=== PATIENT | male | born 1950 | race Caucasian/White ===

== ENCOUNTER 2024-09-22 09:50 | Day surgery (SDC) | payer OTHER ==
[~2024-09-22] VITALS: Ht 177.8 cm; Wt 106.6 kg
[~2024-09-22 09:50] MED LIST: RANO500T3 PO; TAMS-35 PO
[2024-09-22] MEDS ORDERED: IODIXANOL 320MG/ML 100ML BTL IV ONE ×2 (12:41→14:15)
[2024-09-22] MEDS ORDERED: ANGIOMAX 250 MG VIAL IV ONE (12:49)
[2024-09-22] MEDS ORDERED: HEPARIN SODIUM (PORCINE) 5000 UNITS/ML 1ML VIAL ONE (12:50)
[2024-09-22] MEDS ORDERED: VERAPAMIL 2.5MG/ML INJ 2ML VIAL IV ONE (12:50)
[2024-09-22] MEDS ORDERED: LIDOCAINE 2%HCL (LOCAL ANESTH.) INJ 20ML MDV ONE (12:50)
[2024-09-22] MEDS ORDERED: fentaNYL CITRATE 100 MCG/2 ML VL ONE (12:50)
[2024-09-22] MEDS ORDERED: MIDAZOLAM HCL 2MG/2ML 2ml VIAL (1mg/ml) ONE (12:50)
[2024-09-22] MEDS ORDERED: SODIUM CHL 0.9% 50 ML ONE (12:51)
[2024-09-22] MEDS ORDERED: ASPirin 325 MG TAB ONE (14:18)
[2024-09-22] MEDS ORDERED: TICAGRELOR 90 MG TAB ONE (14:18)
--- NOTE | 2024-09-22 15:04 | DVHOP ---
DATE OF SURGERY: 09/22/2024 PROCEDURES PERFORMED: Left heart catheterization, bilateral cine coronary angiography, left ventriculography, PTCA and stenting of the LAD and diagonal arteries. Fractional flow reserve evaluation and intravascular ultrasound of the diagonal and LAD and FFR evaluation of the diagonal. Stenting of the LAD and no complications. Right heart catheterization was also performed. DESCRIPTION OF PROCEDURE: Prior local anesthesia with 2% lidocaine to the right wrist and full informed consent obtained. The patient was prepped and draped in the usual fashion, followed by placement of a 6-[place] sheath into the right radial artery, through which a Blake catheter was used for ventriculography and cannulation of both right and left coronary ostia for diagnostic purposes. We also placed a slender 6-[place] sheath into the antecubital vein. We placed a [place] catheter from the basilic vein to the right atrium, right ventricle, pulmonary artery capillary wedge pressure positions, where pressures were obtained and recorded. Cardiac outputs were determined by thermodilution technique in triplicate. No complications. HEMODYNAMICS: Aortic blood pressure was 130/70, end-diastolic pressure was 8 without a gradient across the aortic valve on pullback. Right atrial pressure was 5 with an RV pressure of 25/5 and a PA pressure of 25/15. Capillary wedge pressure was 8. Cardiac output was approximately 5.2 by the thermodilution technique in triplicate. CORONARY ANATOMY: The RCA is a large vessel with no stenosis in its proximal, mid or distal segments. PDA and posterolateral branches are normal. Left main is large and normal. Left anterior descending is a large vessel. It has a proximal 60%-70% stenosis. The diagonal has an 85%-90% stenosis proximally. The circumflex is free of significant disease. Ventriculography in the EPSTEIN projection shows an EF of about 65%. A [employer] program was used to perform FFR on the LAD showing a marginal FFR of mid 80s. Intravascular ultrasound with an IVUS catheter from [employer] revealed an area of 2.3 cm2 consistent with significant stenosis. We pre-dilated the diagonal artery with a 2.5 balloon in the left anterior descending with a 2.5 balloon as well. We placed a 2.5 x 26 mm stent into the diagonal artery and we placed a 3.5 x 12 into the LAD successfully without complications. There was excellent antegrade flow without thrombus formation and/or dissection. IMPRESSION: Normal left ventricular end-diastolic pressure at rest, normal pulmonary pressures. No gradients across valves. Coronary artery disease involving the left anterior descending and diagonal with successful evaluation, fractional flow reserve and intravascular ultrasound evaluation. No significant complications or other abnormalities occurred. There was a successful stenting of the LAD and diagonal arteries. The patient tolerated the procedure well with no complications. MD PRIMITIVO Del Angel/JESSICA/JAVED TID: [id number] RECEIPT: [id number] MTDD
[2024-09-22] MEDS ORDERED: ACETAMINOPHEN 325 MG TAB PO ONE (15:32)
[2024-09-22] MEDS ORDERED: TICA90TA PO (16:42)
== END 2024-09-22 17:05 | disposition home or self-care (01) ==
LOC: CATH 09:50
PROVIDERS: ATTEND Internal Medicine
DX: I25.119 Atherosclerotic heart disease of native coronary artery with unspecified angina pectoris (principal); R93.1 Abnormal findings on diagnostic imaging of heart and coronary circulation; R07.9 Chest pain, unspecified; I12.9 Hypertensive chronic kidney disease with stage 1 through stage 4 chronic kidney disease, or unspecified chronic kidney disease; N18.31 Chronic kidney disease, stage 3a; N40.1 Benign prostatic hyperplasia with lower urinary tract symptoms; I77.810 Thoracic aortic ectasia; E78.5 Hyperlipidemia, unspecified; K21.9 Gastro-esophageal reflux disease without esophagitis; E66.01 Morbid (severe) obesity due to excess calories; Z68.42 Body mass index [BMI] 45.0-49.9, adult; Z79.899 Other long term (current) drug therapy; Z95.5 Presence of coronary angioplasty implant and graft; Z90.89 Acquired absence of other organs; Z98.890 Other specified postprocedural states; Z82.49 Family history of ischemic heart disease and other diseases of the circulatory system
CPT/HCPCS: 75580; 92978; 93460; C1725; C1753; C1769; C1874; C1887; C1894; C9600; C9601; J0583; J1644; J2250; J3010; Q9967; 99152; 99153